=== PATIENT | female | born 1980 | race Caucasian/White ===

== ENCOUNTER 2017-02-17 15:44 | Emergency (ER) | payer OTHER ==
[2017-02-17 18:39] VITALS: BP 107/52
--- NOTE | 2017-02-17 19:35 | UC ---
FLU HPI - HPI Summary HPI Summary: Pt c/o of nasal congestion, body aches, and cough. Pt denies getting flu vaccine this year. Pt is pregant, due date in 2016. - History of Current Complaint Chief Complaint: UCGeneralIllness Stated Complaint: FEVER,BILATERAL EAR PAIN Time Seen by Provider: 02/17/17 18:32 Hx Obtained From: Patient Hx Last Menstrual Period: 11/19/16 ?: Yes Onset/Duration: Gradual Onset, Lasting Minutes, Lasting Days Severity Initially: Mild Pain Intensity: 5 Pain Scale Used: 0-10 Numeric Associated Signs & Symptoms: Positive: Myalgia, Cough, Nasal Congestion - Allergy/Home Medications Allergies/Adverse Reactions: Allergies Allergy/AdvReac Type Severity Reaction Status Date / Time Codeine AdvReac Intermediate VOMITS Verified 02/17/17 18:33 Home Medications: Home Medications Metoclopramide TAB* [Reglan TAB*] 10 mg PO Q6H PRN 02/17/17 [History Confirmed 02/17/17] Multiple Vitamins W/ Minerals [Multivitamin Gummies Wome] 1 chw PO DAILY [History Confirmed 02/17/17] PMH/Surg Hx/FS Hx/Imm Hx Previously Healthy: Yes Endocrine History Of: Denies: Diabetes, Thyroid Disease Cardiovascular History Of: Denies: Cardiac Disorders, Hypertension Respiratory History Of: Reports: Bronchitis Denies: Asthma GI/ History Of: Denies: Gastrointestinal Bleed Neurological History Of: Denies: CVA Psychological History Of: Denies: Depression Cancer History Of: Denies: Colorectal Cancer Other History Of: Negative For: Hepatitis B - Surgical History Surgical History: Yes Surgery Procedure, Year, and Place: APPY 1985, CSECTION 2001 AND APR 25 2013 - Family History Known Family History: Positive: Hypertension - Social History Lives: With Family Alcohol Use: None Substance Use Type: None Smoking Status (MU): Heavy Every Day Tobacco Smoker Type: Cigarettes Amount Used/How Often: 1/2 ppd Length of Time of Smoking/Using Tobacco: age 18 Household Exposure Type: Cigarettes Review of Systems Constitutional: Chills, Fatigue Skin: Negative Eyes: Negative ENT: Ear Ache - left, Other - nasal congestion Respiratory: Cough Cardiovascular: Negative Gastrointestinal: Negative Genitourinary: Negative Motor: Negative Neurovascular: Negative Musculoskeletal: Negative Neurological: Negative Psychological: Negative All Other Systems Reviewed And Are Negative: Yes Physical Exam Triage Information Reviewed: Yes Appearance: Ill-Appearing - mild Vital Signs: Initial Vital Signs Temp 99.9 F 02/17/17 18:35 Pulse 103 02/17/17 18:35 Resp 16 02/17/17 18:35 BP 107/52 02/17/17 18:35 Pulse Ox 100 02/17/17 18:35 Eye Exam: Normal ENT Exam: Other ENT: Positive: Nasal congestion Neck exam: Normal Respiratory Exam: Normal Cardiovascular Exam: Normal Abdominal Exam: Other Abdomen Description: Positive: Other: - pt is Musculoskeletal Exam: Normal Neurological Exam: Normal Psychological Exam: Normal Skin Exam: Normal Flu Course/Dx - Differential Dx/Diagnosis Differential Diagnosis/HQI/PQRI: Influenza, Upper Respiratory Infection Provider Diagnoses: URI Discharge - Discharge Plan Condition: Stable Disposition: HOME Patient Education Materials: Upper Respiratory Infection (ED) Referrals: [facility] [place] [facility]IAN REFERRAL [Outside] Additional Instructions: Please follow up with your PCP or return to clinic.
== END 2017-02-17 19:28 | disposition home or self-care (01) ==
LOC: UCCORT 15:44
DX: O26.891 Other specified pregnancy related conditions, first trimester (principal); J06.9 Acute upper respiratory infection, unspecified; Z3A.13 13 weeks gestation of pregnancy
CPT/HCPCS: 87502; 99211; G0463

== ENCOUNTER 2018-09-10 09:00 | Emergency (ER) | payer OTHER ==
[2018-09-10 09:27] VITALS: BP 106/72
--- NOTE | 2018-09-10 09:48 | UC ---
Respiratory Complaint HPI - HPI Summary HPI Summary: cough x 2 weeks + nasal congestion , pnd, cough is productive, yellow / green sputum no wheezing , no sob - History of Current Complaint Chief Complaint: UCRespiratory Stated Complaint: SORE THROAT, COUGH Time Seen by Provider: 09/10/18 09:41 Hx Obtained From: Patient Hx Last Menstrual Period: 09/01/18 Onset/Duration: Gradual Onset Timing: Constant Severity Initially: Moderate Severity Currently: Moderate Pain Intensity: 2 Character: Cough: Productive Aggravating Factors: Exertion, Deep Breaths Alleviating Factors: Nothing Associated Signs And Symptoms: Positive: Chills, URI, Nasal Congestion. Negative: Dyspnea, Fever, Pleuritic Chest Pain, Wheezing, Calf Pain - Allergies/Home Medications Allergies/Adverse Reactions: Allergies Allergy/AdvReac Type Severity Reaction Status Date / Time codeine AdvReac Vomiting Verified 09/10/18 09:23 Home Medications: Home Medications Ibuprofen TAB* [Motrin TAB* 600 MG] 600 mg PO Q6H PRN 09/10/18 [History Confirmed 09/10/18] PMH/Surg Hx/FS Hx/Imm Hx Previously Healthy: Yes Other History Of: Negative For: Hepatitis B - Surgical History Surgical History: Yes Surgery Procedure, Year, and Place: APPY 1985, CSECTION 2001 AND APR 25 2013 - Family History Known Family History: Positive: Hypertension Negative: Diabetes - Social History Alcohol Use: None Substance Use Type: None Smoking Status (MU): Heavy Every Day Tobacco Smoker Type: Cigarettes Amount Used/How Often: 1/2 ppd Length of Time of Smoking/Using Tobacco: age 18 Household Exposure Type: Cigarettes Review of Systems Constitutional: Negative Skin: Negative Eyes: Negative ENT: Negative Respiratory: Cough Cardiovascular: Negative Gastrointestinal: Negative Is Patient Immunocompromised?: No All Other Systems Reviewed And Are Negative: Yes Physical Exam Triage Information Reviewed: Yes Appearance: Well-Appearing, No Pain Distress, Well-Nourished Vital Signs: Initial Vital Signs Temp 98 F 09/10/18 09:22 Pulse 81 09/10/18 09:22 Resp 16 09/10/18 09:22 BP 106/72 09/10/18 09:22 Pulse Ox 99 09/10/18 09:22 Vital Signs Reviewed: Yes Eyes: Positive: Conjunctiva Clear ENT: Positive: Normal ENT inspection, Hearing grossly normal, Pharyngeal erythema, Nasal drainage Neck: Positive: Supple, Nontender, No Lymphadenopathy Respiratory: Positive: Chest non-tender, Lungs clear, Normal breath sounds Cardiovascular: Positive: RRR, No Murmur, Pulses Normal Skin Exam: Normal UC Diagnostic Evaluation - Laboratory O2 Sat by Pulse Oximetry: 99 Respiratory Course/Dx - Differential Dx/Diagnosis Provider Diagnoses: bronchitis Discharge - Sign-Out/Discharge Documenting (check all that apply): Patient Departure All imaging exams completed and their final reports reviewed: No Studies - Discharge Plan Condition: Stable Disposition: HOME Prescriptions: Azithromycin TAB* [Zithromax TAB (Z-DEVAN) 250 mg #6 tabs] 2 tab PO .TODAY, THEN 1 DAILY #1 devan Patient Education Materials: Acute Bronchitis (ED) Referrals: No Primary Care Phys,NOPCP [Primary Care Provider] - If Needed - Billing Disposition and Condition Condition: STABLE Disposition: Home
== END 2018-09-10 09:49 | disposition home or self-care (01) ==
LOC: UCCORT 09:00
DX: J40 Bronchitis, not specified as acute or chronic (principal); F17.210 Nicotine dependence, cigarettes, uncomplicated
CPT/HCPCS: 99212; G0463

== ENCOUNTER 2019-01-11 19:12 | Emergency (ER) | payer OTHER ==
[2019-01-11 19:39] VITALS: BP 128/86
--- NOTE | 2019-01-11 20:06 | UC ---
General HPI - HPI Summary HPI Summary: day 5 of sinus pain, pressure and congestion. fever of 100. cough since yesterday. self tx with Dayquil, Tylenol and Sudafed. admits to headache, body aches, congested cough and some sob. + smoker. No asthma or COPD. - History of Current Complaint Chief Complaint: UCRespiratory Stated Complaint: FEVER,COUGH,SINUS CONGESTION Time Seen by Provider: 01/11/19 20:00 Hx Obtained From: Patient Hx Last Menstrual Period: 12/09/18 Timing: Constant Pain Intensity: 5 Associated Signs & Symptoms: Negative: Chest Pain - Allergy/Home Medications Allergies/Adverse Reactions: Allergies Allergy/AdvReac Type Severity Reaction Status Date / Time codeine AdvReac Vomiting Verified 01/11/19 19:36 PMH/Surg Hx/FS Hx/Imm Hx Previously Healthy: Yes Other History Of: Negative For: Hepatitis B - Surgical History Surgical History: Yes Surgery Procedure, Year, and Place: APPY 1985. CSECTION 2001, 2012, 2016 - Family History Known Family History: Positive: Hypertension Negative: Diabetes - Social History Alcohol Use: None Substance Use Type: None Smoking Status (MU): Heavy Every Day Tobacco Smoker Type: Cigarettes Amount Used/How Often: 1/2 ppd Length of Time of Smoking/Using Tobacco: age 18 Household Exposure Type: Cigarettes Review of Systems All Other Systems Reviewed And Are Negative: Yes Constitutional: Positive: Fever, Chills Skin: Positive: Negative Eyes: Positive: Negative ENT: Positive: Nasal Discharge, Sinus Congestion, Sinus Pain/Tenderness Respiratory: Positive: Shortness Of Breath, Cough Cardiovascular: Positive: Negative Gastrointestinal: Positive: Negative Genitourinary: Positive: Negative Motor: Positive: Negative Neurovascular: Positive: Negative Musculoskeletal: Positive: Myalgia Neurological: Positive: Headache Psychological: Positive: Negative Physical Exam Triage Information Reviewed: Yes Appearance: Well-Appearing Vital Signs: Initial Vital Signs Temp 97.7 F 01/11/19 19:37 Pulse 94 01/11/19 19:37 Resp 20 01/11/19 19:37 BP 128/86 01/11/19 19:37 Pulse Ox 100 01/11/19 19:37 Vital Signs Reviewed: Yes Eyes: Positive: Conjunctiva Clear ENT: Positive: Pharynx normal, Nasal congestion, Nasal drainage - clear/white, TMs normal Neck: Positive: Supple, Nontender, No Lymphadenopathy Respiratory: Positive: No respiratory distress, Decreased breath sounds, Wheezing - LLL Cardiovascular: Positive: RRR, No Murmur Abdomen Description: Positive: Nontender, No Organomegaly, Soft Bowel Sounds: Positive: Present Musculoskeletal: Positive: ROM Intact Neurological: Positive: Alert Psychological: Positive: Age Appropriate Behavior Skin Exam: Normal Diagnostics - Laboratory Diagnostic Studies Completed/Ordered: rapid flu=neg - Radiology No standard instances Radiology Interpretation Completed By: ED Physician - wet read=cxr nad Re-Evaluation - Re-Evaluation First Eval Re-Evaluation Time: 20:43 Change: Improved - BETTER AERATION BUT FOCAL RHONCHI/WHEEZES IN LLL Course/Dx - Differential Dx - Multi-Symptom Differential Diagnoses: Other - uri, sinsuitis, bronchitis, pneumonia, viral syndrom/influenza. Will tx for possible early pneumonia due to focal rhonchi and wheezes in LLL. - Diagnoses Provider Diagnosis: URI (upper respiratory infection), Bronchitis Discharge - Sign-Out/Discharge Documenting (check all that apply): Patient Departure All imaging exams completed and their final reports reviewed: No Studies - Discharge Plan Condition: Stable Disposition: HOME Prescriptions: DOXYcycline CAP(*) [DOXYcycline 100MG CAP(*)] 100 mg PO BID 10 Days #20 cap predniSONE [Prednisone 20 MG TAB] 40 mg PO DAILY 4 Days #8 tablet Patient Education Materials: Upper Respiratory Infection (DC), Acute Bronchitis (ED) Referrals: MARCELA Anaya [Medical Doctor] - 7 Days Additional Instructions: USE THE ALBUTEROL INHALER 2 PUFFS EVERY 6 HOURS. - Billing Disposition and Condition Condition: STABLE Disposition: Home
[2019-01-11] MEDS ORDERED: predniSONE TAB* 20 MG PO ONE (20:08)
[2019-01-11] MEDS ORDERED: Albuterol HFA INHALER* 8 gm MDI INH ONE (20:08)
[2019-01-11] MEDS ORDERED: Albuterol 2.5 MG/3 ML NEB.SOL* (0.083%) INH ONE (20:22)
[2019-01-11 20:29] LABS: Influenza A Molecular NEGATIVE (Negative); Influenza B Molecular NEGATIVE (Negative)
[2019-01-11] MEDS ORDERED: DOXYcycline CAP(*) 100 MG PO ONE (20:45)
== END 2019-01-11 21:04 | disposition home or self-care (01) ==
LOC: UCCORT 19:12
DX: J06.9 Acute upper respiratory infection, unspecified (principal); J40 Bronchitis, not specified as acute or chronic; M79.10 Myalgia, unspecified site; F17.210 Nicotine dependence, cigarettes, uncomplicated; Z88.5 Allergy status to narcotic agent
CPT/HCPCS: 71046; 99213; A9270-GY; G0463; J7512

== ENCOUNTER 2019-07-13 14:32 | Emergency (ER) | payer OTHER ==
[2019-07-13 15:22] VITALS: BP 123/80
--- NOTE | 2019-07-13 15:34 | UC ---
Skin Complaint HPI - HPI Summary HPI Summary: Pt c/o tender lump on right inner medial thigh. Pt denies injury or known insect bite. Pt states that "lump" began as small non tender and has grown over the last 7 days and is very tender. Pt has been applying warm packs. - History of Current Complaint Chief Complaint: UCSkin Time Seen by Provider: 07/13/19 15:17 Stated Complaint: SKIN COMPLAINT RIGHT THIGH Hx Obtained From: Patient Hx Last Menstrual Period: 07/02/19 ?: No Onset/Duration: Gradual Onset, Lasting Days, Still Present, Worse Since - onset Skin Exposure Onset/Duration: Days Ago - 7 Timing: Constant Onset Severity: Mild Current Severity: Moderate Pain Intensity: 7 Location: Discrete - right upper medial thigh Character: Pain, Redness, Painful Aggravating Factor(s): Touch Alleviating Factor(s): Nothing Associated Signs & Symptoms: Positive: Tenderness - Allergy/Home Medications Allergies/Adverse Reactions: Allergies Allergy/AdvReac Type Severity Reaction Status Date / Time codeine AdvReac Vomiting Verified 07/13/19 15:23 Home Medications: Home Medications Ibuprofen TAB* [Advil TAB*] 2 tab PO ONCE 07/13/19 [History Confirmed 07/13/19] PMH/Surg Hx/FS Hx/Imm Hx Previously Healthy: Yes Other History Of: Negative For: Hepatitis B - Surgical History Surgical History: Yes Surgery Procedure, Year, and Place: APPY 1985. CSECTION 2001, 2012, 2016. Tubal ligation 2016 - Family History Known Family History: Positive: Hypertension Negative: Diabetes - Social History Occupation: Employed Full-time Lives: With Family Alcohol Use: None Substance Use Type: None Smoking Status (MU): Heavy Every Day Tobacco Smoker Type: Cigarettes Amount Used/How Often: 1 ppd Length of Time of Smoking/Using Tobacco: age 18 Have You Smoked in the Last Year: Yes Household Exposure Type: Cigarettes - Immunization History Vaccination Up to Date: No Review of Systems All Other Systems Reviewed And Are Negative: Yes Constitutional: Positive: Negative Skin: Positive: Other - tender mass Eyes: Positive: Negative ENT: Positive: Negative Respiratory: Positive: Negative Cardiovascular: Positive: Negative Gastrointestinal: Positive: Negative Genitourinary: Positive: Negative Motor: Positive: Negative Neurovascular: Positive: Negative Musculoskeletal: Positive: Negative Neurological: Positive: Negative Psychological: Positive: Negative Is Patient Immunocompromised?: No Physical Exam Triage Information Reviewed: Yes Appearance: Well-Appearing Vital Signs: Initial Vital Signs Temp 98 F 07/13/19 15:17 Pulse 88 07/13/19 15:17 Resp 16 07/13/19 15:17 BP 123/80 07/13/19 15:17 Pulse Ox 100 07/13/19 15:17 Vital Signs Reviewed: Yes Eye Exam: Normal ENT Exam: Normal Dental Exam: Normal Neck exam: Normal Respiratory Exam: Normal Respiratory: Positive: No respiratory distress Musculoskeletal Exam: Normal Neurological Exam: Normal Psychological Exam: Normal Skin Exam: Other - large marble size moveable, tender mass right upper medial thigh, not superficial, Course/Dx - Differential Diagnoses - Skin Complaint Differential Diagnoses: Abscess, MRSA - Diagnoses Provider Diagnosis: Abscess Discharge - Sign-Out/Discharge Documenting (check all that apply): Patient Departure All imaging exams completed and their final reports reviewed: No Studies - Discharge Plan Condition: Stable Disposition: HOME Prescriptions: Cephalexin CAP* [Keflex 500 CAP*] 500 mg PO Q8H #30 cap Patient Education Materials: Abscess (ED), Warm Compress or Soak (ED) Referrals: [facility] [place] [facility]IAN REFERRAL [Outside] - If Needed Jefferson Kessler [Medical Doctor] - If Needed No Primary Care Phys,NOPCP [Primary Care Provider] - - Billing Disposition and Condition Condition: STABLE Disposition: Home
== END 2019-07-13 15:45 | disposition home or self-care (01) ==
LOC: UCCORT 14:32
DX: L02.415 Cutaneous abscess of right lower limb (principal); F17.210 Nicotine dependence, cigarettes, uncomplicated
CPT/HCPCS: 99212; G0463

== ENCOUNTER 2020-03-19 19:30 | Emergency (ER) | payer SELFPAY ==
--- NOTE | 2020-03-19 19:48 | UC ---
Abdominal Pain Female HPI - HPI Summary HPI Summary: 39 yo female presents with abdominal pain. She tells me that since yesterday she has had severe epigastric and RUQ pain that is worse 10-20minutes after eating any po intake. Not eating or drinking improves her pain slightly. She tried taking pepto bismal yesterday for her pain with no relief. Last BM was this morning and denies color or consistency change. She denies fever, chills, SOB, chest pain, n/v/d/c, dysuria. Hx of appendectomy and tubal. She smokes daily. Rare alcohol use. - History of Current Complaint Stated Complaint: ABD PAIN Time Seen by Provider: 03/19/20 19:48 Hx Obtained From: Patient Hx Last Menstrual Period: 07/02/19 Onset/Duration: Sudden Onset Severity Initially: Severe Severity Currently: Severe Pain Intensity: 9 Pain Scale Used: 0-10 Numeric Allergies/Adverse Reactions: Allergies Allergy/AdvReac Type Severity Reaction Status Date / Time codeine AdvReac Vomiting Verified 03/19/20 19:54 Home Medications: Home Medications Bismuth Subsalicylate [Pepto-Bismol Max Strength] 525 mg PO TID PRN 03/19/20 [ History Confirmed 03/19/20] PMH/Surg Hx/FS Hx/Imm Hx - Additional Past Medical History Additional PMH: None Other History Of: Negative For: Hepatitis B - Surgical History Surgical History: Yes Surgery Procedure, Year, and Place: APPY 1985. CSECTION 2001, 2012, 2017. Tubal ligation 2017 - Family History Known Family History: Positive: Hypertension Negative: Diabetes - Social History Lives: With Family Alcohol Use: Rare Substance Use Type: None Smoking Status (MU): Heavy Every Day Tobacco Smoker Type: Cigarettes Amount Used/How Often: 1 ppd Length of Time of Smoking/Using Tobacco: age 18 Have You Smoked in the Last Year: Yes Household Exposure Type: Cigarettes - Immunization History Vaccination Up to Date: No Review of Systems All Other Systems Reviewed And Are Negative: No Constitutional: Positive: Negative Skin: Positive: Negative Eyes: Positive: Negative ENT: Positive: Negative Respiratory: Positive: Negative Cardiovascular: Positive: Negative Gastrointestinal: Positive: Abdominal Pain Genitourinary: Positive: Negative Neurovascular: Positive: Negative Neurological/Mental Status: Positive: Negative Psychological: Positive: Negative Physical Exam - Summary Physical Exam Summary: GENERAL: NAD. WDWN. No pain distress. SKIN: No rashes, sores, lesions, or open wounds. NECK: Supple. Nontender. No lymphadenopathy. CHEST: CTAB. No r/r/w. No accessory muscle use. Breathing comfortably and in no distress. CV: RRR. Pulses intact. Cap refill <2seconds ABDOMEN: Moderate TTP about epigastric region and RUQ. Weak positive phillips sign. Soft. No distention or guarding. No CVA tenderness. Bowel sounds present NEURO: Alert. PSYCH: Age appropriate behavior. Triage Information Reviewed: Yes Vital Signs: Vital Signs: Temp Pulse Resp BP Pulse Ox 98.7 F 79 17 131/93 97 03/19/20 19:55 03/19/20 19:55 03/19/20 19:55 03/19/20 19:55 03/19/20 19:55 Vital Signs Reviewed: Yes Abd Pain Female Course/Dx - Course Course Of Treatment: Afebrile and BP stable. High suspicion for gallbladder etiology. Likely will require RUQ US or CT with po contrast and labs beyond the scope of urgent care. Discussed with pt and recommended further evaluation in the ED. She declines ambulance transfer and prefers to go by POV - her mother will drive her now. - Differential Dx/Diagnosis Differential Diagnosis: Gall Bladder Disease, Hepatitis, Pancreatitis, Peptic Ulcer Disease, Other - Gastritis Provider Diagnosis: RUQ pain Discharge ED - Sign-Out/Discharge Documenting (check all that apply): Patient Departure All imaging exams completed and their final reports reviewed: No Studies - Discharge Plan Condition: Stable Disposition: HOME-RECOMMEND TO ED Referrals: No Primary Care Phys,NOPCP [Primary Care Provider] - Additional Instructions: Please go to the ED for further evaluation of your abdominal pain - Billing Disposition and Condition Condition: STABLE Disposition: Home-Recommend to ED
[2020-03-19 19:59] VITALS: BP 131/93
== END 2020-03-19 20:00 | disposition home health service (06) ==
LOC: UCCORT 19:30
DX: R10.11 Right upper quadrant pain (principal); R10.13 Epigastric pain; Z88.5 Allergy status to narcotic agent; F17.210 Nicotine dependence, cigarettes, uncomplicated
CPT/HCPCS: 99212; G0463